=== PATIENT | female | born 1950 | race Caucasian/White ===

== ENCOUNTER 2016-09-07 13:33 | Emergency (ER) | payer OTHER, MEDICARE ==
[~2016-09-07] VITALS: Ht 160 cm; Wt 80.0 kg
[~2016-09-07 13:33] MED LIST: CELE40TA PO; GLYB1TAB51 PO; IBUP800T23 PO; LANTINJ SC; LANTUSP SQ; MEDR4PAK3 PO; METF-324 PO; ORPH100T PO; OXYB5TAB33 PO
[2016-09-07 13:36] VITALS: BP 164/82; PULSE 104; RESP 20; TEMP 98.1; O2SAT 91
--- NOTE | 2016-09-07 14:30 | PD ---
HPI Chief Complaint: Laceration/Skin Injury Time Seen by Provider: 14:28 Travel History International Travel<30 days: No Contact w/Intl Traveler<30days: No Traveled to known affect area: No History of Present Illness HPI Patient comes in complaining of right pinky finger laceration occurred shortly prior to arrival. Patient states she was cutting up ingredients to make a pie when she caused the laceration. Patient states she rinsed it and applied pressure prior to coming to the emergency department. Patient reports her tetanus shot is up-to-date. Patient reports tenderness from site of the laceration without radiation. Denies any numbness or tingling. PFSH Past Medical History Diabetes: Yes Diminished Hearing: No Menopausal: Yes Past Surgical History Section: Yes (2) Tonsillectomy: Yes Social History Alcohol Use: Yes (OCCASIONAL) Tobacco Use: No Substance Use: No Allergies-Medications (Allergen,Severity, Reaction): Uncoded Allergies: STATINS (Adverse Reaction, NAUSEA, 12/03/13) Reported Meds & Prescriptions Reported Meds & Active Scripts Active Reported Ditropan (Oxybutynin Chloride) 5 Mg Tab 5 Mg PO Q12HR Citalopram (Citalopram Hydrobromide) 40 Mg Tab 40 Mg PO DAILY Glipizide 10 Mg Tab 10 Mg PO BIDAC Take 30 minutes before a meal Metformin (Metformin HCl) 1,000 Mg Tab 1,000 Mg PO BIDPC With meals Review of Systems Except as stated in HPI: all other systems reviewed are Neg Physical Exam Narrative GENERAL: Well-developed, well nourished, in no acute distress, and non-ill appearing. SKIN: Warm and dry. Laceration palmar surface of right pinky finger distal phalanx. HEAD: Atraumatic. Normocephalic. EYES: Pupils equal and round. EOMI. No scleral icterus. No injection or drainage. ENT: No nasal bleeding or discharge. Mucous membranes pink and moist. NECK: Trachea midline. Supple. No nuclear rigidity. RESPIRATORY: No accessory muscle use. No respiratory distress. MUSCULOSKELETAL: No obvious deformities. No clubbing. No cyanosis. No edema. Full range of motion. NEUROLOGICAL: Awake and alert. No obvious cranial nerve deficits. Motor grossly within normal limits. Normal speech. PSYCHIATRIC: Appropriate mood and affect; insight and judgment normal. Data Data Last Documented VS Vital Signs Date Time Temp Pulse Resp B/P Pulse Ox O2 Delivery O2 Flow Rate FiO2 09/07/16 13:36 98.1 104 20 164/82 91 Room Air MDM Medical Decision Making Medical Screen Exam Complete: Yes Emergency Medical Condition: Yes Differential Diagnosis Laceration, abrasion, contusion, other Narrative Course The patient suffered laceration to the finger. There was no evidence to suggest foreign bodies by history and exam. Visual and tactile exams were unremarkable. There was no evidence of neurovascular injury. The patient had a normal distal vascular exam, and had full normal motor and sensory exams. There was also no evidence or tendon injury, with normal distal full range of motions, flexion, extension, abduction, adduction and opponens. There was no evidence of local joint space involvement at this time. The patient was irrigated with copious sterile normal saline and primary repair was performed. Please see procedure note. The patient was given signs and symptom warnings for infection, such as increasing pain, redness, swelling, associated heat, pus or fever. The patient was given instructions for timely follow up and for removal. The patient agreed with plan of care. Patient in no obvious distress upon re-evaluation. Any questions/concerns in reference to patient diagnosis/condition discussed and clarified prior to patient's discharge. Reinforced sheer importance of close follow up with patient 's primary physician or primary care clinic. Instructed patient to return to ED immediately, if symptoms return/worsen. Pt showed understanding of above instructions. Further instructions and recommendations were detailed in discharge paperwork. Pt ambulated without difficulty out of ED at discharge. Procedures Procedure Narrative LACERATION REPAIR LOCATION: Right pinky distal to the palmar surface LENGTH: Approximately 1 cm NUMBER OF STITCHES/NOE: 2 simple interrupted REPAIR: Verbal consent was obtained. The area of the laceration was cleaned and prepped. Digital block was performed using Marcaine without epi and lidocaine without epi.. The wound was copiously irrigated and explored without evidence of foreign body, bony involvement, ligament injury, tendon injury, or neurovascular injury. The wound was closed using 5-0 Vicryl. This was a single layer repair. A sterile dressing was applied by nurse. The patient was advised to keep the affected area as clean and dry as possible using soap and water. There were no complications. Patient tolerated the procedure well. Diagnosis Primary Impression: Finger laceration Qualified Code: S61.219A - Finger laceration, initial encounter Patient Instructions: Care For Your Absorbable Stitches (DC), Finger Laceration (ED), General Instructions Additional Instructions: Follow-up with your primary care physician or return here in 14 days for suture removal. Sutures will dissolve on their own if you choose not to have them taken out. Keep wound dry and clean as possible using soap and water. Do not soak or submerge wound. Return to the emergency department if symptoms get worse. Disposition: 01 DISCHARGE HOME Condition: Stable Hitesh Rojas Sep 07, 2016 14:29
[2016-09-07] MEDS ORDERED: OXYB5TAB10 PO (14:38)
[2016-09-07] MEDS ORDERED: METF1000 PO (14:38)
[2016-09-07] MEDS ORDERED: GLIP10TA6 PO (14:38)
[2016-09-07] MEDS ORDERED: CITA40TA4 PO (14:38)
== END 2016-09-07 15:46 | disposition home or self-care (01) ==
LOC: NEPB 13:33
DX: S61.216A Laceration without foreign body of right little finger without damage to nail, initial encounter (principal); E11.9 Type 2 diabetes mellitus without complications; Z79.84 Long term (current) use of oral hypoglycemic drugs; W26.0XXA Contact with knife, initial encounter; Y93.G1 Activity, food preparation and clean up
CPT/HCPCS: 12001